=== PATIENT | female | born 1955 | race Two or more races ===

== ENCOUNTER 2024-08-03 15:09 | Emergency (ER) | payer MEDICAID, MEDICARE, OTHER ==
[~2024-08-03] VITALS: Ht 170.2 cm; Wt 90.7 kg
[~2024-08-03 15:09] MED LIST: ETOMIDATE 20 MG/10 ML VIAL ONE
[2024-08-03] MEDS ORDERED: SWABABLE VALVE TRANSFER SET EA MC ONE (15:40)
[2024-08-03] MEDS ORDERED: IOHEXOL 350 100 ML INFUS..BTL ONE (15:40)
[2024-08-03] MEDS ORDERED: IV NORMAL SALINE 250 ML IV ONE (15:42)
[2024-08-03] MEDS: PROCHLORPERAZINE EDISYLATE 10 MG/2 ML VIAL IV ONE (16:02)
[2024-08-03] MEDS ORDERED: PROCHLORPERAZINE EDISYLATE 10 MG/2 ML VIAL ONE (16:02)
[2024-08-03 16:05] LABS: CALCIUM 8.6 mg/dL (8.5-10.1); CARBON DIOXIDE 23 mmol/L (21-32); CHLORIDE 104 mmol/L (98-107); CREATININE 0.9 mg/dL (0.6-1.3); GLUCOSE 166 mg/dL (74-106); SODIUM SERUM 138 mmol/L (136-145); UREA NITROGEN, BLOOD 16 mg/dL (7-18)
[2024-08-03 16:06] LABS: BASOPHILS % (AUTO) 0.3 % (0.0-2.0); DIFFERENTIAL COMMENT 1; EOSINOPHILS % (AUTO) 0.5 % (0.0-7.0); HEMATOCRIT 36.1 % (31.2-41.9); LYMPHOCYTES # (AUTO) 1.8 K/uL (0.8-4.8); LYMPHOCYTES % (AUTO) 17.1 % (20.5-51.5); MEAN CORPUSCULAR HEMOGLOBIN 29.1 uug (24.7-32.8); MEAN CORPUSCULAR HGB CONC 33 g/dL (32.3-35.6); MEAN CORPUSCULAR VOLUME 87.8 fL (75.5-95.3); MONOCYTES # (AUTO) 0.5 K/uL (0.1-1.30); MONOCYTES % (AUTO) 5.1 % (0.0-11.0); NEUTROPHILS # (AUTO) 8.1 K/uL (1.8-8.9); PLATELET COUNT (AUTO) 171 K/uL (179-408); RED BLOOD CELL COUNT(AUTO) 4.11 MIL/uL (3.63-4.92); RED CELL DISTRIBUTION WIDTH 13.4 % (12.3-17.7); WHITE BLOOD COUNT (AUTO) 10.5 K/uL (3.8-11.8)
[2024-08-03 16:08] LABS: POTASSIUM 2.7 mmol/L (3.5-5.1)
[2024-08-03] MEDS: ETOMIDATE 20 MG/10 ML VIAL IV ONE (16:17)
[2024-08-03] MEDS: SUCCINYLCHOLINE CHLORIDE 200 MG/10 ML VIAL IV ONE (16:18)
[2024-08-03] MEDS ORDERED: PROPOFOL 100 ML ONE ×2 (16:28→17:54)
[2024-08-03] MEDS: PROPOFOL 1,000 MG/100 ML BOTTLE IV ONE (16:30)
[2024-08-03 16:31] LABS: LACTIC ACID 2.4 mmol/L (0.4-2.0)
[2024-08-03] MEDS ORDERED: POTASSIUM CHLORIDE 50 ML ONE (16:51)
[2024-08-03] MEDS ORDERED: POTASSIUM BICARBONATE/CIT AC 25 MEQ TABLET.EFF ONE (16:51)
[2024-08-03] MEDS: POTASSIUM BICARBONATE/CIT AC 25 MEQ TABLET.EFF MC ONE (16:53)
[2024-08-03] MEDS ORDERED: OXYC15TA2 PO (16:54)
[2024-08-03] MEDS ORDERED: OMEP40CA21 PO (16:54)
[2024-08-03] MEDS ORDERED: FENT1PAT6 (16:54)
[2024-08-03] MEDS ORDERED: ASPI-1420 PO (16:54)
[2024-08-03] MEDS: levETIRAcetam IV 500 MG in IV DEXTROSE 5% 100 ML IV ONE (17:01)
[2024-08-03] MEDS: POTASSIUM CHLORIDE 50 ML IV SCH (17:17)
[2024-08-03] MEDS ORDERED: POTASSIUM CHLORIDE 150 ML ONE (17:53)
[2024-08-03 18:21] LABS: BILIRUBIN,DIRECT 0.1 mg/dL (0.0-0.2); BILIRUBIN,TOTAL 0.5 mg/dL (0.2-1.0)
[2024-08-03 18:30] VITALS: O2SAT 100
== END 2024-08-03 19:11 | disposition short-term general hospital (02) ==
LOC: ER 15:09
DX: I60.9 Nontraumatic subarachnoid hemorrhage, unspecified (principal); R51.9 Headache, unspecified; E87.6 Hypokalemia; R22.0 Localized swelling, mass and lump, head; Z79.899 Other long term (current) drug therapy; Z79.82 Long term (current) use of aspirin
CPT/HCPCS: 99291; 70496; 31500; 96365; 71045; 96375 ×2; 80048; 82247; 82248; 82962; 85025; 85730; 84484; 36415; 83605 ×2; 70450; 93005; J3490; J1953; Q9967; J3480 ×2; J0780; J0330 ×2